=== PATIENT | female | born 1995 | race Caucasian/White ===

== ENCOUNTER 2018-07-09 14:32 | Inpatient (IN) | payer MEDICAID ==
[2018-07-09 15:19] LABS: ADD MAN DIFF? NO
[2018-07-09 15:21] LABS: WHITE BLOOD COUNT 8.9 10^3/ul (4.8-10.8)
[2018-07-09 15:21] LABS: BASOPHILS % 0.2 % (0.0-2.0); EOSINOPHILS # 0.1 10^3/ul (0.0-0.5); EOSINOPHILS % 0.6 % (0.0-7.0); HEMATOCRIT 38.7 % (37.0-47.0); HEMOGLOBIN 12.8 g/dl (12.0-16.0); LYMPHOCYTES # 1.6 10^3/ul (0.8-2.9); LYMPHOCYTES % 17.7 % (15.0-51.0); MEAN CORPUSCULAR HEMOGLOBIN 28.8 pg (29.0-33.0); MEAN CORPUSCULAR HGB CONC 33.1 g/dl (32.0-37.0); MEAN CORPUSCULAR VOLUME 87.2 fl (82.0-101.0); MEAN PLATELET VOLUME 10.7 fl (7.4-10.4); MONOCYTE # 0.5 10^3/ul (0.3-0.9); MONOCYTES % 5.4 % (0.0-11.0); NEUTROPHIL # 6.7 10^3/ul (1.6-7.5); NEUTROPHILS % 75.5 % (39.0-77.0); PLATELET COUNT 186 10^3/UL (140-415); RED BLOOD COUNT 4.44 10^6/ul (4.20-5.40); RED CELL DISTRIBUTION WIDTH 13.2 % (11.5-14.5)
[2018-07-09 15:29] LABS: ADD UMIC YES; UR ASCORBIC ACID 20 mg/dL (NEGATIVE); UR BACTERIA FEW /HPF (NONE SEEN); UR BILIRUBIN (Dip) NEGATIVE (NEGATIVE); UR BLOOD (Dip) NEGATIVE (NEGATIVE); UR CLARITY CLOUDY (CLEAR); UR COLOR YELLOW (YELLOW); UR GLUCOSE (Dip) NEGATIVE (NEGATIVE); UR KETONES (Dip) TRACE mg/dL (NEGATIVE); UR LEUKOCYTE ESTERASE (Dip) NEGATIVE Leu/ul (NEGATIVE); UR MUCUS FEW /HPF (NONE SEEN); UR NITRITE (Dip) NEGATIVE (NEGATIVE); UR RBC 10 /HPF (0-5); UR SQUAMOUS EPITHELIAL CELL FEW /HPF (FEW); UR TOTAL PROTEIN (Dip) NEGATIVE (NEGATIVE); UR UROBILINOGEN (Dip) NEGATIVE (NEGATIVE); UR WBC 2 /HPF (0-5)
[2018-07-09 15:46] LABS: RUPTURE FETAL MEMBRANES POSITIVE (NEGATIVE)
[2018-07-09] MEDS ORDERED: MISOPROSTOL 200 MCG TAB PR (16:00)
[2018-07-09] MEDS ORDERED: OXYTOCIN 30 UNITS/LR 500 ML IV ×3 (16:00→23:20)
[2018-07-09] MEDS ORDERED: CARBOPROST 250 MCG INJ IM (16:00)
[2018-07-09] MEDS ORDERED: METHYLERGONOVINE 0.2 MG INJ IM (16:00)
[2018-07-09 16:25] LABS: INR 0.87; PARTIAL THROMBOPLASTIN TIME 28.5 Sec (23.0-35.0); PROTIME 11.9 Sec (11.9-14.9); PT RATIO 0.9
[2018-07-09] MEDS: LACTATED RINGER'S 1,000 ML IV ×4 (16:31→23:06)
[2018-07-09] MEDS: AMPICILLIN 2 GM/NS (PMX) 100 ML IV (16:32)
[2018-07-09] MEDS: AMPICILLIN 1 GM/NS (PMX) 50 ML IVPB (20:19)
[2018-07-09] MEDS: CITRIC ACID/NA CITRATE 30 ML CUP PO (21:06)
[2018-07-09] MEDS: FAMOTIDINE 20 MG INJ IV (21:06)
[2018-07-09] MEDS: METOCLOPRAMIDE 10 MG INJ IV (21:06)
[2018-07-09 21:31] LABS: RAPID PLASMA REAGIN NONREACTIVE (NR)
[2018-07-09] MEDS ORDERED: morphine SULFATE/PF (10 MG/10 ML) INJ (23:20)
[2018-07-09] MEDS ORDERED: AZITHROMYCIN 500MG/NS (PMX) 250 ML (23:42)
[2018-07-09] MEDS ORDERED: EPHEDrine SULFATE 50 MG/5 ML SYG (23:44)
[2018-07-10] MEDS ORDERED: PROCHLORPERAZINE 10 MG INJ IV
[2018-07-10] MEDS ORDERED: KETOROLAC 30 MG INJ IV
[2018-07-10] MEDS ORDERED: MEPERIDINE 25 MG INJ IV
[2018-07-10] MEDS ORDERED: FENTAnyl 50 MCG/ML VIAL IV ×3
[2018-07-10] MEDS ORDERED: HYDROmorphONE 1 MG/5 ML IV SYRINGE IV ×3
[2018-07-10] MEDS ORDERED: ONDANSETRON 4 MG INJ (00:01)
[2018-07-10] MEDS ORDERED: PHENYLephrine (100 MCG/ML) 10ML SYG (00:09)
[2018-07-10] MEDS ORDERED: OXYTOCIN 30 UNITS/LR 500 ML IV ×2 (00:15→01:00)
[2018-07-10] MEDS ORDERED: LANOLIN HPA 1 PKT TOP (01:00)
[2018-07-10] MEDS ORDERED: HYDROmorphONE 0.5 MG/0.5 ML SYG IV ×2 (01:00)
[2018-07-10] MEDS ORDERED: ZOLPIDEM 5 MG TAB PO (01:00)
[2018-07-10] MEDS ORDERED: MISOPROSTOL 200 MCG TAB PR (01:00)
[2018-07-10] MEDS ORDERED: DIPHENHYDRAMINE 50 MG INJ IV ×2 (01:00)
[2018-07-10] MEDS ORDERED: ONDANSETRON 4 MG INJ IV ×2 (01:00)
[2018-07-10] MEDS ORDERED: NALOXONE (0.4 MG/ML) INJ IV (01:00)
[2018-07-10] MEDS ORDERED: OXYCODONE/ACETAMINOPHEN (5/325) TAB PO (01:00)
[2018-07-10] MEDS ORDERED: METHYLERGONOVINE 0.2 MG INJ IM (01:00)
[2018-07-10] MEDS ORDERED: CARBOPROST 250 MCG INJ IM (01:00)
[2018-07-10] MEDS: OXYTOCIN 30 UNITS/LR 500 ML IV (01:42)
[2018-07-10] MEDS: CEFAZOLIN 2 GM/50 ML (PMX) 50 ML IVPB (04:42)
[2018-07-10] MEDS: IBUPROFEN 800 MG TAB PO (06:00)
[2018-07-10 08:22] LABS: ADD MAN DIFF? NO
[2018-07-10 08:28] LABS: WHITE BLOOD COUNT 13.5 10^3/ul (4.8-10.8)
[2018-07-10 08:28] LABS: BASOPHILS % 0.2 % (0.0-2.0); EOSINOPHILS % 0.1 % (0.0-7.0); HEMATOCRIT 37.1 % (37.0-47.0); HEMOGLOBIN 12.4 g/dl (12.0-16.0); LYMPHOCYTES # 1.5 10^3/ul (0.8-2.9); LYMPHOCYTES % 10.7 % (15.0-51.0); MEAN CORPUSCULAR HGB CONC 33.4 g/dl (32.0-37.0); MEAN CORPUSCULAR VOLUME 86.9 fl (82.0-101.0); MEAN PLATELET VOLUME 11.3 fl (7.4-10.4); MONOCYTE # 0.7 10^3/ul (0.3-0.9); MONOCYTES % 5.3 % (0.0-11.0); NEUTROPHIL # 11.2 10^3/ul (1.6-7.5); NEUTROPHILS % 83.1 % (39.0-77.0); PLATELET COUNT 180 10^3/UL (140-415); RED BLOOD COUNT 4.27 10^6/ul (4.20-5.40); RED CELL DISTRIBUTION WIDTH 13.2 % (11.5-14.5)
[2018-07-10] MEDS: LACTATED RINGER'S 1,000 ML IV (11:44)
[2018-07-10] MEDS: SENNA/DOCUSATE NA (8.6MG/50MG) TAB PO ×2 (11:44→20:34)
[2018-07-10] MEDS: KETOROLAC 30 MG INJ IV (16:22)
[2018-07-11] MEDS: IBUPROFEN 800 MG TAB PO ×4 (05:37→22:11)
[2018-07-11] MEDS: SENNA/DOCUSATE NA (8.6MG/50MG) TAB PO ×2 (09:19→21:27)
[2018-07-12] MEDS: IBUPROFEN 800 MG TAB PO ×3 (05:48→23:50)
[2018-07-12] MEDS: SENNA/DOCUSATE NA (8.6MG/50MG) TAB PO ×2 (09:45→20:47)
[2018-07-12] MEDS: DIPHTH/TET/ACEL PERTUSS (ADULT) 0.5 ML VIAL IM* (14:45)
[2018-07-12] MEDS: OXYCODONE/ACETAMINOPHEN (5/325) TAB PO (20:48)
[2018-07-13] MEDS: IBUPROFEN 800 MG TAB PO ×2 (06:18→13:46)
[2018-07-13] MEDS: OXYCODONE/ACETAMINOPHEN (5/325) TAB PO (11:11)
[2018-07-13] MEDS: SENNA/DOCUSATE NA (8.6MG/50MG) TAB PO (11:11)
== END 2018-07-13 15:35 | disposition home or self-care (01) | DRG 788 ==
LOC: OBT 14:32 → L-D 07-10 00:38 → PP1 07-10 03:51 → OBT 15:55 → L-D 15:55
PROVIDERS: Obstetrics & Gynecology
PROC: 10D00Z1 Extraction of Products of Conception, Low, Open Approach (ICD-10-PCS; principal; 2018-07-09 23:15)
DX: O34.211 Maternal care for low transverse scar from previous cesarean delivery (principal); O42.92 Full-term premature rupture of membranes, unspecified as to length of time between rupture and onset of labor; O99.824 Streptococcus B carrier state complicating childbirth; Z3A.37 37 weeks gestation of pregnancy; Z37.0 Single live birth; Z23 Encounter for immunization
CPT/HCPCS: 76818; 81001; 84112; 85025; 85610; 85730; 86592; 86850; 86900; 86901; 99464